=== PATIENT | male | born 1965 | race Caucasian/White ===

== ENCOUNTER 2018-02-28 07:05 | Day surgery (SDC) | payer OTHER ==
[~2018-02-28] VITALS: Ht 170.2 cm; Wt 88.5 kg
[2018-02-28] VITALS (10 sets, daily range): BP systolic 108–139; BP diastolic 65–84
--- NOTE | 2018-02-28 06:53 | Anethesia Preoperative Eval ---
Anesthesia Pre-op PMH/ROS General Date of Evaluation: Feb 28, 2018 Time of Evaluation: 06:52 Anesthesiologist: perla ASA Score: ASA 2 Mallampati Score Class I : Soft palate, uvula, fauces, pillars visible Class II: Soft palate, uvula, fauces visible Class III: Soft palate, base of uvula visible Class IV: Only hard plate visible Mallampati Classification: Class II Surgeon: lakeshia Diagnosis: abdominal pain Surgical Procedure: colonoscopy Anesthesia History: none Social History: smoking - former smoker Family History: no anesthesia problems Allergies: Coded Allergies: ANGEL (Verified Adverse Reaction, Intermediate, vomiting, 02/28/18) Medications: see eMAR Anesthesia Pre-op Phys. Exam Physician Exam Last Vital Signs Date Time Temp Pulse Resp B/P (MAP) Pulse Ox O2 Delivery O2 Flow Rate FiO2 02/28/18 07:44 97.7 57 18 139/78 96 Room Air 97.7 Constitutional: NAD Neurologic: CN 2-12 intact Cardiovascular: RRR Respiratory: CTA Gastrointestinal: S/NT/ND Airway Exam Mallampati Score: Class II MO: full Neck: supple TMD: 2fb ROM: full Teeth: intact Anesthesia Pre-op A/P Risk Assessment & Plan Assessment: asa2 Plan: mac Status Change Before Surgery: No Pre-Antibiotics Drug: Liberty Renee MD Feb 28, 2018 06:53
[~2018-02-28 07:05] MED LIST: Atropine Inj 1mg/10ml Syr IV PRN; DiphenhydrAMINE 50mg/ml Inj IVP PRN; LR 1000ml 1,000 ML IVLG SCH; Midazolam 2mg/2ml Inj IVP PRN; fentaNYL 100 mcg/2 mL IV PRN
[2018-02-28] MEDS ORDERED: NKM (07:28)
[2018-02-28] MEDS ORDERED: Propofol 200mg/20ml IV ONE (07:30)
[2018-02-28] MEDS ORDERED: Midazolam 2mg/2ml Inj ONE (07:30)
[2018-02-28] MEDS ORDERED: Lidocaine 1% MPF 10mg/ml 5ml ONE (07:30)
[2018-02-28] MEDS ORDERED: LR 1000ml ONE (07:30)
--- NOTE | 2018-02-28 07:48 | Pre-Procedure Note/Attestation ---
Pre-Procedure Note/Attestation Complete Prior to Procedure Planned Procedure: left Procedure Narrative: Examination of the colon via endoscopy Indications for Procedure Pre-Operative Diagnosis: R/O Hemorrhoids VS. colitis/tumor Attestation I attest that I discussed the nature of the procedure; its benefits; risks and complications; and alternatives (and the risks and benefits of such alternatives ), prior to the procedure, with the patient (or the patient's legal sales representative livestock). I attest that, if there was a reasonable possibility of needing a blood transfusion, the patient (or the patient's legal sales representative livestock) was given the [facility] standardized written summary, pursuant to the [place] Blood Safety Act ([place] Health and Safety Code # 1645, as amended). I attest that I re-evaluated the patient just prior to the surgery and that there has been no change in the patient's H&P, except as documented below: Jaja Aleman MD Feb 28, 2018 07:48
--- NOTE | 2018-02-28 07:48 | Short Stay Surgery H&P ---
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) Medication History Scheduled No Known Medications* (NKM - No Known Medications*), 0 ., (Reported) Review of Systems Cardiovascular: Reports: no symptoms Respiratory: Reports: no symptoms Skeletal: Reports: trauma Gastrointestinal: Reports: gastro esophageal reflux disease Genitourinary: Reports: no symptoms Neurologic: Reports: no symptoms Endocrine: Reports: no symptoms Hematologic: Reports: no symptoms Physical Exam Skin: normal HENT: normal Heart: normal Lungs: normal Abdomen: normal Extremities: normal Genitourinary: normal Plan Plan of Care Total colonoscopy with possible biopsy and polypectomy. Preop Interventions None. Summary of Findings See the reports Attestation Are the patient's medical conditions optimized for surgery? Attestation Response: yes Jaja Aleman MD Feb 28, 2018 07:47
--- NOTE | 2018-02-28 08:24 | Endoscopy Procedure Note ---
Endoscopy Procedure Note General Indication for Procedure: rectal bleeing and abdominal pains Procedures Performed: colonoscopy - Minimal internal hemorrhoids, otherwise normal total colonoscopy. Specimen: none Pt Tolerated Procedure Well: Yes Estimated Blood Loss: none Anesthesia Anesthesiologist: Dr. High Anesthesia: moderate sedation Medications Medication Given: see anesthesia record Inserted Devices Implant(s) used?: No Quality Quality of Bowel Preparation: Good Did scope reach the cecum?: Yes Was there any complications?: No GI Core Measures 50 yrs or older w/o bx or poly: Yes 10yrs. F/U not recommended: Yes If not recommended, why?: 10 yrs. F/U needed: Yes 18 years or older w/prev. colo: No Med reason:<3 yrs.: System Reason:<3 yrs.: Last colonoscopy >= to 3yrs: Yes Jaja Aleman MD Feb 28, 2018 08:24
--- NOTE | 2018-02-28 08:25 | Discharge Instructions ---
Discharge Instructions Discharge Instructions Follow up with: See the doctor after 2 weeks in the office. For Congestive Heart Failure Reminder Report to your physician any weight gain of 5 pounds or more in one week. Jaja Aleman MD Feb 28, 2018 08:25
--- NOTE | 2018-02-28 09:21 | Immediate Post-Op Evaluation ---
Immediate Post-Op Evalulation Immediate Post-Op Evalulation Procedure: colonoscopy Date of Evaluation: Feb 28, 2018 Time of Evaluation: 08:29 IV Fluids: 150ml lr Blood Products: none Estimated Blood Loss: neglgible Blood Pressure Systolic: 111 Blood Pressure Diastolic: 75 Pulse Rate: 70 Respiratory Rate: 18 O2 Sat by Pulse Oximetry: 100 Temperature (Fahrenheit): 98.3 Pain Score (1-10): 0 Nausea: No Vomiting: No Complications none Patient Status: awake, reacts, patent Hydration Status: adequate Drug: Liberty Renee MD Feb 28, 2018 09:21
--- NOTE | 2018-02-28 14:17 | 48 Hour Post Anesthesia Eval ---
Post Anesthesia Evaluation Procedure: colonoscopy Date of Evaluation: Feb 28, 2018 Time of Evaluation: 08:31 Blood Pressure Systolic: 111 0: 75 Pulse Rate: 70 Respiratory Rate: 18 Temperature (Fahrenheit): 98.3 O2 Sat by Pulse Oximetry: 100 Airway: patent Nausea: No Vomiting: No Pain Intensity: 0 Hydration Status: adequate Cardiopulmonary Status: stable Mental Status/LOC: patient returned to baseline Post-Anesthesia Complications: none Follow-up care needed: N/A Liberty Fuchs MD Feb 28, 2018 14:17
--- NOTE | 2018-03-03 09:45 | Operative Note - Dictated ---
DATE OF OPERATION: 02/28/2018 REFERRING PHYSICIAN: Charbel Bates M.D. PREOPERATIVE DIAGNOSIS: Rectal bleeding, abdominal pain. POSTOPERATIVE DIAGNOSIS: Minimal internal hemorrhoid, non-friable, otherwise complete normal total colonoscopy up to the base of the cecum as examined. PROCEDURE: Total colonoscopy. SURGEON: Jaja Aleman M.D. MEDICATION USED: Per Dr. High, anesthesiologist. INSTRUMENT: GIF Olympus videocolonoscope. DESCRIPTION OF PROCEDURE: The patient after arriving endoscopy unit, was told about risks and benefits of the procedure, which he accepted and signed informed consent. At this time, he was put on the left lateral decubitus position. After adequate IV sedation, the scope was gently passed through the anal area and a retroflexion maneuver, which was applied here revealed evidence of very minimal internal hemorrhoids, which were not friable at this time. The rest of the rectum was also completely normal. At this point, the scope was gradually passed through highly redundant left colon reaching to the splenic flexure and from there it was guided into the transverse colon, hepatic flexure, and finally reached to the right colon and base of the cecum. All these areas remained to be completely normal. There was no any evidence of inflammatory process, tumor, polyps, stricture, etc. No ulcerations noted. No bleeding noted. The colon cleanup was adequate and good. At this time within 6 minutes, the scope was gradually pulled out and re-evaluation of the colon did not reveal any other abnormalities. The patient tolerated the procedure well and left the endoscopy room in a good condition. Jaja Aleman M.D. DR: SUSAN JOB#: [id number] CC:
== END 2018-02-28 09:20 | disposition home or self-care (01) ==
LOC: SDS 07:05
DX: K64.8 Other hemorrhoids (principal); Z87.891 Personal history of nicotine dependence; Z91.018 Allergy to other foods; E78.5 Hyperlipidemia, unspecified; K21.9 Gastro-esophageal reflux disease without esophagitis
CPT/HCPCS: 45378; J2250; J2704; J7120; 94003; 94150